=== PATIENT | male | born 1990 | race Caucasian/White ===

== ENCOUNTER → 2017-10-17 | Outpatient (CLI) | payer BC | LOC: COL.RAD 10-05 10:30 | DX: M75.81 Other shoulder lesions, right shoulder (principal); M89.8X1 Other specified disorders of bone, shoulder ==

== ENCOUNTER 2017-11-18 16:21 | Observation (INO) | payer BC ==
[~2017-11-18] VITALS: Ht 195.6 cm; Wt 116.4 kg
[2017-11-18] MEDS ORDERED: NORCO 325 MG-7.1 TAB PO (16:25)
[2017-11-18] MEDS ORDERED: ZOFRAN 4MG T4 MG/TAB PO (16:26)
[2017-11-18] MEDS ORDERED: PRIL40 PO (16:26)
[2017-11-18 17:58] LABS: BASO # 0.1 (0.0-0.2); BASO % 0.7 % (0.0-2.0); EOS # 0.1 (0.0-0.7); EOS % 1.1 % (0-4.0); GRAN # 6.9 (1.4-6.5); GRAN % 66.1 % (42.2-75.2); HEMATOCRIT 42.9 % (42.0-52.0); HEMOGLOBIN 14.4 g/dl (13.5-18.0); LYMPH # 2.5 (1.2-3.4); LYMPH % 23.5 % (20.0-51.0); MEAN CELL VOLUME 86 fl (80.0-100.0); MEAN CORPUSCULAR HEMOGLOBIN 29 pg (27.0-31.0); MEAN CORPUSCULAR HGB CONC 34 g/dl (33.0-37.0); MEAN PLATELET VOLUME 11.5 fl (7.4-10.4); MONO # 0.9 (0.1-0.6); MONO % 8.3 % (1.7-9.3); PLATELET COUNT 211 K/mm3 (130-400); RED BLOOD COUNT 5.02 M/mm3 (4.20-5.60); REDCELL DISTRIBUTION WIDTH-CV 12.4 % (11.5-14.5)
[2017-11-18 18:07] LABS: ALBUMIN 4.2 gm/dL (3.5-5.0); BILIRUBIN,TOTAL 0.2 mg/dL (0.0-1.0); CALCIUM 9.4 mg/dL (8.4-10.2); CREATININE, serum 1.03 mg/dL (0.66-1.25); POTASSIUM 3.7 mmol/L (3.4-5.0); TOTAL PROTEIN 7.1 gm/dL (6.4-8.2)
[2017-11-19 00:29] VITALS: BP 125/70; PULSE 68; TEMP 98.1
[2017-11-19 01:45] LABS: COLLECTION METHOD CLEAN CATCH
[2017-11-19 02:14] LABS: MUCOUS Present /lpf; PH 7 (5-8); SQUAMOUS EPITHELIAL None Seen /hpf; URINE APPEARANCE Clear; URINE BACTERIA None Seen /hpf; URINE BILIRUBIN Negative (NEGATIVE); URINE BLOOD Negative (NEGATIVE); URINE COLOR Yellow; URINE GLUCOSE Negative (NEGATIVE); URINE KETONE Negative (NEGATIVE); URINE LEUKOCYTE ESTERASE Negative (NEGATIVE); URINE NITRATE Negative (NEGATIVE); URINE PROTEIN(semi-quant) Negative (NEGATIVE); URINE RBC 0-2 /hpf; URINE UROBILINOGEN Negative (NEGATIVE)
[2017-11-19 05:01] VITALS: BP 128/62; PULSE 66; TEMP 98.2
[2017-11-19 13:45] VITALS: BP 118/58; PULSE 64; TEMP 98.2
[2017-11-19 17:41] VITALS: BP 132/61; PULSE 65; TEMP 97.7
[2017-11-19 20:05] VITALS: BP 129/76; PULSE 70; TEMP 98.1
[2017-11-19 23:55] VITALS: BP 114/70; PULSE 68; TEMP 98.3
[2017-11-20 03:53] VITALS: BP 109/60; PULSE 63; TEMP 97.6
[2017-11-20 08:00] VITALS: BP 134/59; PULSE 61; TEMP 98.1
[2017-11-20 12:28] VITALS: BP 121/64; PULSE 65; TEMP 98.4
[2017-11-20] MEDS ORDERED: NEURONTIN300 MG/CAP PO (13:27)
[2017-11-20] MEDS ORDERED: NORCO 325 MG-7.1 TAB PO (13:28)
== END 2017-11-20 14:20 | disposition home or self-care (01) ==
LOC: COL.ER 16:21 → SURG 22:30
PROVIDERS: Emergency Medicine
DX: G89.18 Other acute postprocedural pain (principal); K21.9 Gastro-esophageal reflux disease without esophagitis; Z88.3 Allergy status to other anti-infective agents
CPT/HCPCS: G0378; J1170; J1885; J2270; J7030; J7050; Q9967

== ENCOUNTER 2018-03-07 23:15 | Emergency (ER) | payer BC ==
[~2018-03-07] VITALS: Ht 195.6 cm; Wt 115.0 kg
[~2018-03-07 23:15] MED LIST: NEURONTIN300 MG/CAP PO; NORCO 325 MG-7.1 TAB PO; PRIL40 PO; ZOFRAN 4MG T4 MG/TAB PO
[2018-03-07 23:18] VITALS: BP 135/83; PULSE 83; TEMP 96.8
[2018-03-07] MEDS ORDERED: PRIL40 PO (23:22)
== END 2018-03-08 00:31 | disposition home or self-care (01) ==
LOC: COL.ER 23:15
DX: L55.0 Sunburn of first degree (principal); K21.9 Gastro-esophageal reflux disease without esophagitis; Z98.890 Other specified postprocedural states
CPT/HCPCS: J1885

== ENCOUNTER → 2019-12-25 | Outpatient (CLI) | payer OTHER | LOC: MHCPAIN 10:22 | DX: M47.817 Spondylosis without myelopathy or radiculopathy, lumbosacral region (principal); M53.3 Sacrococcygeal disorders, not elsewhere classified; G89.29 Other chronic pain | CPT/HCPCS: G0463 ==

== ENCOUNTER → 2020-03-05 | Outpatient (CLI) | payer OTHER | LOC: MHCPAIN 10:40 | DX: M47.817 Spondylosis without myelopathy or radiculopathy, lumbosacral region (principal); M54.5 Low back pain; M53.3 Sacrococcygeal disorders, not elsewhere classified; G89.29 Other chronic pain | CPT/HCPCS: G0463 ==

== ENCOUNTER → 2020-03-17 | Outpatient (CLI) | payer OTHER | LOC: MHCPAIN 11:04 | DX: M47.817 Spondylosis without myelopathy or radiculopathy, lumbosacral region (principal); M53.3 Sacrococcygeal disorders, not elsewhere classified; M54.5 Low back pain; G89.29 Other chronic pain | CPT/HCPCS: G0463 ==

== ENCOUNTER → 2020-04-09 | Outpatient (CLI) | payer OTHER | LOC: MHCPAIN 14:24 | DX: M47.817 Spondylosis without myelopathy or radiculopathy, lumbosacral region (principal); M54.5 Low back pain; G89.29 Other chronic pain ==

== ENCOUNTER → 2020-04-30 | Outpatient (CLI) | payer OTHER | LOC: MHCPAIN 12:09 | DX: M47.817 Spondylosis without myelopathy or radiculopathy, lumbosacral region (principal); M54.5 Low back pain; M53.3 Sacrococcygeal disorders, not elsewhere classified; G89.29 Other chronic pain | CPT/HCPCS: G0463; J2250; J3010 ==